=== PATIENT | female | born 1955 | race Caucasian/White ===

== ENCOUNTER 2016-12-03 22:37 | Emergency (ER) | payer MEDICAID, MEDICARE, OTHER ==
[~2016-12-03] VITALS: Ht 157.5 cm; Wt 51.4 kg
[2016-12-03 22:41] VITALS: BP 138/83; PULSE 96; RESP 21; O2SAT 99
--- NOTE | 2016-12-03 22:50 | ED.REPORT ---
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 She reports that she tripped and fell onto a hard, tile floor and her pain has been constant since onset. Patient is currently complaining of numbness in the left wrist that is similar to her baseline. She took Cyclobenzaprine prior to the fall, but just within a few minutes, and it did not contribute to the fall. Nursing Notes Stated Complaint: L WRIST PAIN S/P FALL Chief Complaint: Extremity Trauma Nursing Notes Reviewed: Yes Allergies: Coded Allergies: No Known Allergies (Unverified , 12/03/16) General Time Seen by MD: 22:49 Chief Complaint Wrist injury left Hx Obtained From: Patient Arrived By: Walk-in Onset Occurred: Just prior to arrival Symptom Duration: Since onset Caused by: Accidental, Fall on ground Location: : Wrist left Quality: Painful Severity: Current: Mild Severity: Maximum: Moderate Associated with: Reports: Numb extremities (numbness in wrist ) Pertinent Negative: Pt denies other symptoms Recent Healthcare: No recent doctor visit, No recent hospitalization Past Medical History Past Medical History Hx of hip and foot injury Dysesthesia in ambrocio aspect of left hand T3 N0 ER positive Breast cancer, in treatment Reports: Cancer (Breast ) Past Surgical History Hip surgery Smoking History Never Smoker Social History Other Social History: Good social support, Local resident Ambulatory Status Independent Review of Systems Constitutional: Denies: Chills, Fever Musculoskeletal: Reports: Joint pain (left wrist ) Neurologic: Reports: Numbness (Left hand numbness), Denies: Change LOC Complete sys rev & neg: except as marked. Respiratory: Denies: Shortness of breath Cardiovascular: Denies: Chest pain GI: Denies: Abdominal pain, Nausea, Vomiting Physical Exam Initial Vital Signs Vital Signs (First) Date Time Temp Pulse Resp B/P Pulse Ox O2 Delivery O2 Flow Rate FiO2 12/03/16 22:41 36.2 96 21 138/83 99 Room Air Initial VS: Reviewed Head / Eyes: Atraumatic, Normocephalic, PERRL Neck: Supple, Non-tender, Full range of motion Lower Extremities: Vascular intact, Neuro intact, No swelling, No tenderness Skin: Warm, Dry, No cyanosis Neurologic: Alert, Oriented, Nonfocal Psychiatric: Mood/affect normal, Behavior normal, Normal thought content General/Constitutional: Awake, Alert, No acute distress Respiratory / Chest: Atraumatic, No respiratory distress Upper Extremity / MS: Atraumatic, Neurologic intact (For baseline), Vascular intact Wrist / Hand: Atraumatic, Neurologic intact (BASELINE: dysesthesia in left hand ), Vascular intact Left Wrist: Positive: Deformity present... (Angulated), ROM reduced, Tenderness present... Interpretation & Diagnostics X-Ray Interpretation Xray Interpretation: IMRESSION: Colles' fracture X-Ray Ordered: Wrist left Interpretation / Wet Read by: Wet read ED physician Xray Interpretation: IMPRESSION: Dorsal angulation reduced; not drawn to length X-Ray Ordered: Wrist left Interpretation / Wet Read by: Wet read ED physician Procedures Splint Application - Fx Mgt Time: 23:45 Procedure Performed by: ED physician, [employer] Precise Anatomic Location: Distal radius in the forearm and radial displacement of the wrist and hand Type of Immobilization: Sugar tong Post-Procedure / Complications: Cap refill normal, Post splint vascular nl, Post splint neuro nl (Normal for baseline), Condition improved, Tolerated procedure well, Patient stable Splint Post-Application Eval Extremity Condition: Cap refill < 2 sec, Distal sensation intact, Distal motor Intact, No compartment syndrome Re-Eval/Medical Decision Med Decision/Clinical Course 7-year-old female currently in treatment for breast cancer,, sustained a Colles' fracture comminuted after a low level ground level fall. She has pre-existing dysesthesias in the hand, no worse after this incident. She had some dorsal angulation that was successfully reduced into a sugar tong splint. The fracture was not brought out to length particularly by the manipulation. Neurovascular is intact afterwards. She is discharged home with Vicodin for pain relief. Follow-up with orthopedics Dr. Vallejo. Re-Evaluation/Progress #1: Time of Eval: 23:41 Patient Status: Condition improved Re-Evaluation/Progress Note: Patient is rechecked. She is informed of her X-ray results and diagnosis.Splint is applied. Re-Evaluation/Progress #2: Time of Eval: 00:40 Patient Status: Condition improved Re-Evaluation/Progress Note: All of the patient's questions are addressed. She understands and agrees with the treatment plan. Counseled Regarding: Diagnosis, Need for follow-up, When/why to return to ED Discharge & Departure Impression: Primary Impression: Colles' fracture Encounter type: initial encounter Fracture type: closed Laterality: left Qualified Code: S52.532A - Colles' fracture of left radius, initial encounter for closed fracture Disposition: Home Discharge Condition All VS Reviewed: Yes Condition: Stable Patient Instructions: Wrist Fracture in Adults (ED) Additional Instructions: Call your doctor for follow-up. Call the orthopedic office Monday for follow-up. If you develop any numbness or tingling or coldness of the fingers or hand, loosen the cast bandages and reapply more loosely. Elevate whenever possible above the level of her heart. Ice frequently in the first twenty-four hours. Ibuprofen for pain and then Vicodin if still needed. Return here for any immediate issues. Referrals: Kristine Sharma MD (PCP) Paulie Vallejo MD Attestation Portions of this note were transcribed by Lia Kong. I, Dr. Calixto personally performed the history, physical exam and medical decision-making; I reviewed and confirmed the accuracy of the information in the transcribed note. Signed by: Shannan Ocasio, 12/04/16 0050. copies to: Kristine Sharma MD; Paulie Vallejo MD, Christopher W MD Dec 03, 2016 22:50 LIA KONG Dec 03, 2016 23:07
[2016-12-03] MEDS ORDERED: HYDROcodone-APAP 5-325 mg Tablet PO ONE (23:50)
[2016-12-04] MEDS ORDERED: _HYDROcodone/APAP 5-325 mg Tablet PO PRN (00:40)
[2016-12-04 01:28] VITALS: PULSE 95; RESP 16; O2SAT 96
--- NOTE | 2016-12-04 15:13 | DRSVH ---
PROCEDURE: X-RAY LEFT WRIST COMPLETE, MINIMUM THREE VIEWS ([id number]) INDICATIONS: fall, pain TECHNIQUE: 4 views of the wrist were acquired. COMPARISON: None. FINDINGS: Bones: There is a comminuted fracture in the distal radial metaphysis with impaction, dorsal angulati on and intra-articular involvement. An ulnar styloid fracture is present. There is diffuse osteopenia . Scaphoid view: Scaphoid appears intact. Soft tissues: No suspicious soft tissue calcifications. IMPRESSION: 1. Distal radial metaphyseal fracture with impaction, dorsal angulation and intra-articular involveme nt. 2. Ulnar styloid fracture. 3. Osteopenia. Dictated by: Man Gutierrez M.D. on 12/04/2016 at 8:52 Approved by: Man Gutierrez M.D. on 12/04/2016 at 8:54
--- NOTE | 2016-12-04 15:14 | DRSVH ---
PROCEDURE: X-RAY LEFT WRIST, TWO VIEWS ([id number]) INDICATIONS: post splint TECHNIQUE: 2 views of the wrist were acquired. COMPARISON: [facility], , WRIST 2VW (LT), 08/22/2012, 13:18. FINDINGS: Bones: A plaster cast is placed. There is a comminuted distal metaphyseal fracture with intra-articul ar involvement, dorsal angulation and impaction. An ulnar styloid fracture is noted. No change in ali gnment Soft tissues: No suspicious soft tissue calcifications. IMPRESSION: 1. Comminuted distal radial metaphyseal fracture. 2. An styloid fracture. Dictated by: Man Gutierrez M.D. on 12/04/2016 at 9:17 Approved by: Man Gutierrez M.D. on 12/04/2016 at 9:19
== END 2016-12-04 01:30 | disposition home or self-care (01) ==
LOC: SED 22:37
DX: S52.532A Colles' fracture of left radius, initial encounter for closed fracture (principal); R20.8 Other disturbances of skin sensation; W01.0XXA Fall on same level from slipping, tripping and stumbling without subsequent striking against object, initial encounter; Y93.9 Activity, unspecified; Y92.009 Unspecified place in unspecified non-institutional (private) residence as the place of occurrence of the external cause; Y99.8 Other external cause status; Z85.3 Personal history of malignant neoplasm of breast